=== PATIENT | male | born 1955 | race Caucasian/White ===

== ENCOUNTER 2016-09-18 15:15 | Emergency (ER) | payer OTHER ==
[~2016-09-18] VITALS: Ht 175.3 cm; Wt 111.8 kg
[~2016-09-18 15:15] MED LIST: BISACODYL LAXATI5 MG PO; NORCO 325 MG-7.1 TAB PO
[2016-09-18 18:15] VITALS: BP 175/98
== END 2016-09-18 18:04 | disposition short-term general hospital (02) ==
LOC: ED 15:15
DX: S27.1XXA Traumatic hemothorax, initial encounter (principal); V68.9XXA Unspecified occupant of heavy transport vehicle injured in noncollision transport accident in traffic accident, initial encounter; Y92.410 Unspecified street and highway as the place of occurrence of the external cause; S22.41XA Multiple fractures of ribs, right side, initial encounter for closed fracture
CPT/HCPCS: J7030; Q9967

== ENCOUNTER 2021-09-20 21:02 | Emergency (ER) | payer MEDICARE ==
[~2021-09-20] VITALS: Wt 111.8 kg
[2021-09-20] MEDS ORDERED: NORCO 325 MG-51 TA1 PO (21:49)
[2021-09-20] MEDS ORDERED: CEPHALEXIN500 M1 PO (21:49)
[2021-09-20] MEDS ORDERED: SILVADENE11 TP (21:49)
[2021-09-20 22:36] VITALS: BP 164/89
== END 2021-09-20 22:37 | disposition home or self-care (01) ==
LOC: ED 21:02
DX: T70.0XXA Otitic barotrauma, initial encounter (principal); T20.10XA Burn of first degree of head, face, and neck, unspecified site, initial encounter; T31.0 Burns involving less than 10% of body surface; Z23 Encounter for immunization; W37.8XXA Explosion and rupture of other pressurized tire, pipe or hose, initial encounter; V98.8XXA Other specified transport accidents, initial encounter
CPT/HCPCS: 90715; A4340